=== PATIENT | female | born 1965 | race Caucasian/White ===

== ENCOUNTER 2017-11-09 12:24 | Inpatient (IN) | payer BC ==
[~2017-11-09] VITALS: Ht 157.5 cm; Wt 73.1 kg
[2017-11-09] MEDS: MORPHINE SULFATE 2 MG/ML INJ IV PUSH PRN ×3 (14:12→22:30)
[2017-11-09] MEDS ORDERED: SODIUM CHLOR 0.9% 1000 ML INJ 1,000 ML IV ONE (14:30)
[2017-11-09] MEDS ORDERED: SODIUM CHLOR 0.9% 1000 ML INJ 1,000 ML IV SCH (14:30)
--- NOTE | 2017-11-09 14:30 | HHI.HP ---
[facility] Physician Non-Staff Admission Diagnosis Diagnoses: Chief Complaint: Belly pain Travel History International Travel<30 Days: No Contact w/Intl Traveler <30 Da: No History of Present Illness 52-year-old white female being admitted for diverticulitis. Patient was in her usual state of health until yesterday morning when she began experiencing 10 out of 10 left-sided abdominal pain at its worst that was diffuse. This was associated with bloating. She says the pain would worsen with positioning. She denies taking any pain medications to alleviate her pain. Denies any fevers or chills Due to the persistence of her symptoms she decided to come to the emergency department today. States that she normally has a bowel movement once every couple of days. Review of Systems Except as stated in HPI: all other systems reviewed are Neg Past Family Social History Past Medical History Active smoker Needed a cholecystectomy Past Surgical History Cholecystectomy Hysterectomy Allergies: Coded Allergies: No Known Allergies (Unverified , 11/09/17) Family History Family members with diverticulitis Social History Smoking for decades Physical Exam Physical Exam VS: afebrile GENERAL: White female heard and seen whimpering in pain; eventually calmed down after morphine given, otherwise is obese and well-nourished SKIN: Warm and dry. tattoo on left foot EYES: No scleral icterus. No injection or drainage. ENT: No nasal bleeding or discharge. Mucous membranes pink and moist. Has a tongue piercing CARDIOVASCULAR: Regular rate and rhythm. no murmurs RESPIRATORY: No accessory muscle use. Clear to auscultation. Breath sounds equal bilaterally. GASTROINTESTINAL: Abdomen soft, ND; diffuse TTP w/ minimal rebound but no guarding Extremities: No clubbing, cyanosis, or edema. No obvious deformities. MUSCULOSKELETAL: grossly intact ROM with 5/5 strength in upper and lower extremities proximally; adequate muscle bulk and tone for age and habitus NEUROLOGICAL: Awake and alert. No obvious cranial nerve deficits. No facial droop nor slurred speech noted. PSYCHIATRIC: Appropriate mood and affect; insight and judgment normal. Imaging ct scan from [place] reading diverticulitis Caprini VTE Risk Assessment Caprini VTE Risk Assessment: No/Low Risk (score <= 1) Caprini Risk Assessment Model Point Value = 1 Point Value = 2 Point Value = 3 Point Value = 5 Age 41-60 Minor surgery BMI > 25 kg/m2 Swollen legs Varicose veins or History of unexplained or recurrent spontaneous Oral contraceptives or hormone replacement Sepsis (< 1 month) Serious lung disease, including pneumonia (< 1 month) Abnormal pulmonary function Acute myocardial infarction Congestive heart failure (< 1 month) History of inflammatory bowel disease Medical patient at bed rest Age 61-74 Arthroscopic surgery Major open surgery (> 45 min) Laparoscopic surgery (> 45 min) Malignancy Confined to bed (> 72 hours) Immobilizing plaster cast Central venous access Age >= 75 History of VTE Family history of VTE Factor V Leiden Prothrombin [id number] Lupus anticoagulant Anticardiolipin antibodies Elevated serum homocysteine Heparin-induced thrombocytopenia Other congenital or acquired thrombophilia Stroke (< 1 month) Elective arthroplasty Hip, pelvis, or leg fracture Acute spinal cord injury (< 1 month) Prophylaxis Regimen Total Risk Factor Score Risk Level Prophylaxis Regimen 0-1 Low Early ambulation 2 Moderate Order ONE of the following: *Sequential Compression Device (SCD) *Heparin 5000 units SQ BID 3-4 Higher Order ONE of the following medications: *Heparin 5000 units SQ TID *Enoxaparin/Lovenox 40 mg SQ daily (WT < 150 kg, CrCl > 30 mL/min) *Enoxaparin/Lovenox 30 mg SQ daily (WT < 150 kg, CrCl > 10-29 mL/min) *Enoxaparin/Lovenox 30 mg SQ BID (WT < 150 kg, CrCl > 30 mL/min) AND/OR *Sequential Compression Device (SCD) 5 or more Highest Order ONE of the following medications: *Heparin 5000 units SQ TID (Preferred with Epidurals) *Enoxaparin/Lovenox 40 mg SQ daily (WT < 150 kg, CrCl > 30 mL/min) *Enoxaparin/Lovenox 30 mg SQ daily (WT < 150 kg, CrCl > 10-29 mL/min) *Enoxaparin/Lovenox 30 mg SQ BID (WT < 150 kg, CrCl > 30 mL/min) AND *Sequential Compression Device (SCD) Assessment and Plan Assessment and Plan 52-year-old white female being admitted for diverticulitis w/ intractable pain - IV antibiotics w/ zosyn - independently reviewed ct scan which shows moderate constipation, CT read showing no perforation or abscess - Case discussed with nursing, IV pain control, monitor respiratory status - NS bolus followed by IVF - clear diet, advance as tolerated SCDs Physician Certification 2 Midnight Certification Type: Admission for Inpatient Services Order for Inpatient Services The services are ordered in accordance with Medicare regulations or non- Medicare payer requirements, as applicable. In the case of services not specified as inpatient-only, they are appropriately provided as inpatient services in accordance with the 2-midnight benchmark. Estimated LOS (days): 2 2 days is the estimated time the patient will need to remain in the hospital, assuming treatment plan goals are met and no additional complications. Post-Hospital Plan: Home Darshan Veloz MD Nov 09, 2017 14:30
[2017-11-09] MEDS: PIPERACIL-TAZO 3.375 GM PREMIX 50 ML IV SCH ×2 (15:52→22:10)
[2017-11-09 18:00] VITALS: BP 133/67; PULSE 78; RESP 18; TEMP 99.3; O2SAT 97
[2017-11-09 20:00] VITALS: BP 106/65; PULSE 79; RESP 17; TEMP 98; O2SAT 94
[2017-11-10] VITALS: BP 99/63; PULSE 76; RESP 16; TEMP 97.9; O2SAT 94
[2017-11-10] MEDS: PIPERACIL-TAZO 3.375 GM PREMIX 50 ML IV SCH ×2 (03:41→09:33)
[2017-11-10] MEDS: MORPHINE SULFATE 2 MG/ML INJ IV PUSH PRN ×2 (03:41→09:33)
[2017-11-10 08:00] VITALS: BP 113/74; PULSE 86; RESP 18; TEMP 97.8; O2SAT 94
[2017-11-10] MEDS ORDERED: ACETAMINOPHEN/HYDROcodone 325 MG/5 MG TAB PO PRN (09:45)
[2017-11-10] MEDS ORDERED: POLYETHYLENE GLYCOL 17 GM PKG PO SCH (10:00)
--- NOTE | 2017-11-10 10:43 | HHI.PR ---
Subjective Remarks Nursing denies any deterioration since last night. Patient states she tolerated by mouth intake well. Has not had a bowel movement. States that the pain is "100% better." Objective Vital Signs Date Time Temp Pulse Resp B/P (MAP) Pulse Ox O2 Delivery O2 Flow Rate FiO2 11/10/17 08:00 97.8 86 18 113/74 (87) 94 11/10/17 00:00 97.9 76 16 99/63 (75) 94 11/09/17 20:00 98.0 79 17 106/65 (79) 94 11/09/17 18:00 99.3 78 18 133/67 (89) 97 I/O 11/09/17 11/09/17 11/09/17 11/10/17 11/10/17 11/10/17 07:00 15:00 23:00 07:00 15:00 23:00 Intake Total 1285 ml Balance 1285 ml Intake IV Total 1285 ml # Voids 4 Objective Remarks Has mild diffuse tenderness to palpation all throughout with no rebound Sitting up in bed, no acute distress A/P Assessment and Plan Diverticulitis - Improving clinically, we'll transition to by mouth pain medication, anticipate finishing off with another dose of IV Zosyn and then discharging home on Levaquin and Flagyl. Patient had a bowel movement, feels much better. Has not required any further pain medications apart from her IV one-time dose this morning. Addendum: Patient was due for another dose of Zosyn around 4 PM however her IV was lost before that. Patient was adamant about going home. It was decided that the patient would go home at this time on oral Levaquin and Flagyl. Patient was counseled to proceed back to a clear liquid diet for the next 24 hours and then advance slowly as tolerated. Instructed her to take MiraLAX on a daily basis until her stools became runny. Patient has met maximal benefit from hospitalization and is clinically stable for discharge. Darshan Veloz MD Nov 10, 2017 10:43
[2017-11-10] MEDS ORDERED: METHYLNALTREXONE BROMIDE 12 MG/0.6 ML VIAL SQ SCH (11:00)
[2017-11-10 12:00] VITALS: BP 119/75; PULSE 71; RESP 18; TEMP 97; O2SAT 95
[2017-11-10] MEDS ORDERED: CIPR750T2 PO (14:19)
[2017-11-10] MEDS ORDERED: METR1TAB76 PO (14:19)
--- NOTE | 2017-11-10 14:25 | HHI.DCPOC ---
Discharge Care Plan Diagnosis: (1) Diverticulitis Goals to Promote Your Health * To prevent worsening of your condition and complications * To maintain your health at the optimal level Directions to Meet Your Goals Take your medications as prescribed Follow your dietary instruction Follow activity as directed Keep your appointments as scheduled Take your immunizations and boosters as scheduled If your symptoms worsen call your PCP, if no PCP go to Urgent Care Center or Emergency Room Smoking is Dangerous to Your Health. Avoid second hand smoke Call the 24-hour hour crisis hotline for domestic abuse at Darshan Veloz MD Nov 10, 2017 14:25
[2017-11-10] MEDS ORDERED: MIRA3350 PO (14:27)
== END 2017-11-10 15:09 | disposition home or self-care (01) | DRG 392 ==
LOC: PHEDDLT 12:24 → PH3B 12:34 → OBSVTOIN 16:11
PROVIDERS: ADMIT Hospitalist; ATTEND Hospitalist
DX: K57.92 Diverticulitis of intestine, part unspecified, without perforation or abscess without bleeding (principal); E66.9 Obesity, unspecified; Z68.29 Body mass index [BMI] 29.0-29.9, adult; F17.210 Nicotine dependence, cigarettes, uncomplicated; K59.00 Constipation, unspecified
CPT/HCPCS: 74177; 80053; 81001; 83690; 85025; 96365; 96375; J1170; J1956; J2212; J2270; J2405; J2543; J7030; Q9967